=== PATIENT | male | born 1990 | race Caucasian/White ===

== ENCOUNTER 2022-07-03 18:54 | Emergency (ER) | payer OTHER, SELFPAY ==
[2022-07-03 18:56] VITALS: BP 134/79; PULSE 73; RESP 18; TEMP 36.4; O2SAT 100; BMI 19.6
[2022-07-03 20:17] VITALS: RESP 17
--- NOTE | 2022-07-03 21:32 | US_ITS ---
INDICATION: pain-LT TESTICLE EXAMINATION: Ultrasound US Scrotum (Contents) TECHNIQUE: Realtime ultrasound of the testicles was performed with grayscale, Color Doppler and spectral Doppler analysis. COMPARISON: None. FINDINGS: RIGHT: TESTIS: Measures 4.8 x 3 x 2.2 cm. Normal in size and echotexture, without focal lesion. COLOR DOPPLER: Normal arterial flow present in the testicle with monophasic waveforms. EPIDIDYMIS: Normal in size and echotexture, without focal lesion. [Normal color Doppler flow pattern in the epididymis. HYDROCELE: Small. VARICOCELE: None. LEFT: TESTIS: Measures 4.6 x 2.8 x 2.2 cm. Normal in size and echotexture, without focal lesion. COLOR DOPPLER: Normal arterial flow present in the testicle with monophasic waveforms. EPIDIDYMIS: Normal in size and echotexture, without focal lesion. [Normal color Doppler flow pattern in the epididymis. HYDROCELE: None. VARICOCELE: Yes. US/Testicular with Arterial Flow IMPRESSION: Small right hydrocele. Small left varicocele. Otherwise normal bilateral testes and epididymides. Electronically Signed: Jorge Acuna MD at 22:16 EDT ,
--- NOTE | 2022-07-03 21:49 | EX.ED.GUMALE ---
HPI History of Present Illness Chief Complaint: Male Pain/Injury Informant: patient Narrative Narrative: Patient states that yesterday afternoon he was walking around his apartment he started to get soreness of his left testicle. It was not sudden onset. No flank pain. No dysuria or discharge at any time. No trouble urinating. He states he rested and seem to get better. Today went to work. He does do a lot of lifting bending and moving at work but he denies any specific injury. But the process of doing this work caused the pain to come back. He has pain in the left testicle only. Nowhere else. Still no urinary symptoms or discharge. He did have an unknown surgery regarding foreskin as an infant but has never had a problem urinating or retracting foreskin. Arrestor support makes this better. Touching makes it worse. PFSH PFSH Allergy/AdvReac Type Severity Reaction Status Date / Time No Known Allergies Allergy Verified 07/03/22 18:56 Social History Smoking Status: Never smoker ROS ROS ED Constitutional Constitutional ED: Denies chills or fever(s) Respiratory/Chest Respiratory/Chest: Denies cough Gastrointestinal Gastrointestinal: Denies abdominal pain, constipation, melena, nausea or vomiting Genitourinary Genitourinary ED: Reports other Details: See history of present illness peer ; Denies dysuria, hematuria or urinary frequency Musculoskeletal Musculoskeletal: Denies back pain Integumentary Denies rash Neurologic Neurologic: Denies paresthesias or weakness Endocrine Endocrinology: Denies polydipsia or polyuria Hematologic/Lymphatic Hematologic/Lymphatic: Denies easy bleeding or easy bruising Allergic/Immunologic Allergic/Immunologic ED: Denies urticaria EXAM Physical Exam Const Vital Signs: 07/03/22 18:56 07/03/22 20:17 Temperature 97.5 F L Temperature Source Temporal Pulse Rate 73 Respiratory Rate 18 17 Blood Pressure 134/79 H Blood Pressure Mean 97 Pulse Ox 100 Oxygen Delivery Method Room Air Positive well nourished and well developed General Appearance ED: well developed and NAD; Negative for pallor HEENT Reports moist mucous membranes Eyes General Eye ED: Negative for scleral icterus Resp normal respiratory effort Cardio regular rate GI non-tender, non-distended and no masses no CVA tenderness Narrative: I see no lesions or swelling. No lymphadenopathy. No discharge. Patient is not circumcised. Right testicle is normal. Left testicle and epididymal area seems mildly enlarged and mildly tender. Cremasteric is still intact. There is no hernia including with strain and cough. Back/Spine no CVA tenderness Neuro Sensorium / Orientation: alert Psych mental status grossly normal Skin General Skin Exam: Negative for jaundice or pallor Lesions: no lesions Rashes: no rashes MDM MDM MDM Narrative Medical decision making narrative: Patient's urine is clear without any sign of notable infection and no blood. Ultrasound was normal other than a small right hydrocele and a small left varicocele. Patient will use ice rest supportive underwear and [id number] meds. If he develops more swelling, dysuria, discharge, hematuria any skin lesions or other concerns he should return for repeat evaluation. Lab Data Attestation: I reviewed the patient's lab results. Labs: Laboratory Results - last 24 hr 07/03/22 21:40 Urine Color Straw Urine Clarity Clear Urine pH 7.0 Ur Specific [place] 1.005 Urine Protein Negative Urine Glucose (UA) Normal Urine Ketones Negative Urine Occult Blood Negative Urine Nitrite Negative Urine Bilirubin Negative Urine Urobilinogen Normal Ur Leukocyte Esterase Negative Urine RBC 0 SEEN Urine WBC 0 SEEN Ur Squamous Epith Cells 0 SEEN Urine Bacteria RARE Urine Mucus 0 SEEN Radiography Diagnostic Testing: Clinical Impression(s) from Imaging Studies Testicular Ultrasound 07/03/22 21:32 IMPRESSION: Small right hydrocele. Small left varicocele. Otherwise normal bilateral testes and epididymides. Electronically Signed: Jorge Acuna MD at 22:16 EDT , Discharge Plan Triage Chief Complaint: Male Pain/Injury ED Provider: Efren Voss Dx/Rx/DC Orders Clinical Impression: Left testicular pain Instructions: ED Testicular Pain, Unclear Cause Primary Care Provider: Care Physician,No Primary Referrals: Ethan Wilkerson MD [Med Staff - Active Staff] - 1 Week if not improving Care Physician,No Primary [Primary Care Provider] - Disposition Disposition: Home, Self Care
[2022-07-03 21:50] LABS: Mucous, Urine 0 SEEN /hpf (<or=2+); Red Blood Cells-Urine 0 SEEN /hpf (0-5); Squamous Epithelial Cells - UA 0 SEEN /hpf (0-5); White Blood Cells 0 SEEN /hpf (0-5)
[2022-07-03 21:53] LABS: Color, Urine Straw (Yellow); Glucose, Dipstick Normal (Normal); Ketone-Dipstick Negative (Negative); Leukocyte Esterase-Dipstick Negative /ul (Negative); Nitrite-Dipstick Negative (Negative); Occult Blood-Urine Negative /ul (Negative); Protein-Dipstick Negative (Negative); Specific Gravity, Urine 1.005 (1.002-1.030); Urine Bilirubin Dipstick Negative (Negative); Urine Clarity Clear (Clear); Urine Urobilinogen Normal (Normal)
[2022-07-03 22:06] LABS: Bacteria RARE /hpf (None Seen)
== END 2022-07-03 22:38 | disposition home or self-care (01) ==
PROVIDERS: Emergency Provider Emergency Medicine; Visit Provider Emergency Medicine
DX: N50.812 Left testicular pain (principal)
CPT/HCPCS: 76870; 81001; 93976; 99282